=== PATIENT | male | born 1960 | race Caucasian/White ===

== ENCOUNTER 2020-02-06 14:46 | Emergency (ER) | payer SELFPAY ==
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
[2020-02-06 19:46] VITALS: TEMP 98.4
[2020-02-06 19:48] VITALS: BP 167/88; O2SAT 98
== END 2020-02-06 15:23 | disposition home or self-care (01) ==
LOC: ER 14:46
DX: S00.81XA Abrasion of other part of head, initial encounter (principal); S90.811A Abrasion, right foot, initial encounter; S80.811A Abrasion, right lower leg, initial encounter; V59.40XA Driver of pick-up truck or van injured in collision with unspecified motor vehicles in traffic accident, initial encounter; F17.210 Nicotine dependence, cigarettes, uncomplicated
CPT/HCPCS: 99284; G0390

== ENCOUNTER 2020-02-06 18:43 | Emergency (ER) | payer SELFPAY ==
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
[2020-02-06 20:35] LABS: Absolute Lymphocytes (CBC) 3.8 K/uL (0.7-4.9); Basophils % 1.3 % (0-1.3); Hematocrit 45.6 % (39.6-49.0); Lymphocytes % 32.2 % (15.3-44.8); MPV 8.1 fL (7.6-11.3)
[2020-02-06 21:11] LABS: Creatine Phosphokinase 95 U/L (39-308); Troponin (Emerg Dept Use Only) < 0.02 ng/mL (0.0-0.045)
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
[2020-02-06 22:23] VITALS: TEMP 98.1
[2020-02-06 22:25] VITALS: BP 151/78; O2SAT 97
== END 2020-02-06 21:51 | disposition home or self-care (01) ==
LOC: ER 18:43
DX: M54.12 Radiculopathy, cervical region (principal); V59.4 Driver of pick-up truck or van injured in collision with other and unspecified motor vehicles in traffic accident; F17.210 Nicotine dependence, cigarettes, uncomplicated
CPT/HCPCS: 36415; 70450; 71045; 72125; 82550; 84484; 85025; 93005; 99284

== ENCOUNTER 2023-12-18 15:04 | Emergency (ER) | payer SELFPAY ==
--- OUTSIDE RECORDS SUMMARY | 2023-12-18 15:07 | XMS REPORT | Continuity of Care Document ---
Author Name Unknown Address [address] [facility] [address] th[address] Address [address] [facility] [address] [place] [address] Care Team Providers Care Forklift Technician Name Role Phone Madalyn Attending Clinician Unavailable CYNDEE BULLARD M.D. Attending Clinician Clary Bergman Admitting Clinician Unavailable Payers Payer Name Policy Type Policy Number Effective Date Expirati on Date Source [facility] [id number] 2016 00:00:00 Problems Condition Name Condition Details Condition Category Status Onset Date Resolution Date Last Treatment Date Treating Clinician Comments Source Intertroch anteric fracture of right femur Intertroch anteric fracture of right femur Problem Active [facility] Subtrochan teric fracture, closed, right, initial encounter Subtrochan teric fracture, closed, right, initial encounter Problem Active [facility] Procedures Procedure Date / Time Performed Performing Clinicia n Source [U] XRAY FEMUR 2 VWS RIGHT [id number] 2019-06-02 00:00:00 [facility] [U] XRAY FEMUR 2 VWS RIGHT [id number] 2019-03-11 00:00:00 [facility] [U] XRAY FEMUR 2 VWS RIGHT [id number] 2019-01-28 00:00:00 [facility] Post Op Promis 29 Survey 2019-01-15 00:00:00 [facility] [U] XRAY FEMUR 2 VWS RIGHT [id number] 2018-12-30 00:00:00 [facility] Encounters Start Date/Time End Date/Time Encounter Type Admission Type Attending Clinicians Care Facility Care Department Encounter ID Source 2020-04-07 02:23:00 2020-04-07 02:23:00 Outpatient Madalyn [facility] [id number] [facility] 2019-06-04 10:45:00 2019-06-04 10:45:00 Appointmen t; CYNDEE BULLARD M.D. GAUVAIN, TAGGART, M.D. [facility] Orthopedics [facility] [id number] [facility] 2019-03-12 10:45:00 2019-03-12 10:45:00 Appointmen t; CYNDEE BULLARD M.D. GAUVAIN, TAGGART, M.D. [facility] [id number] [place] [facility] 2019-01-29 10:45:00 2019-01-29 10:45:00 Appointmen t; CYNDEE BULLARD M.D. GAUVAIN, TAGGART, M.D. [facility] [id number] [place] [facility] 2019-01-01 11:00:00 2019-01-01 11:00:00 Appointmen t; CYNDEE BULLARD M.D. GAUVAIN, TAGGART, M.D. [facility] Orthopedics [facility] [id number] [place] [facility] Results Test Description Test Time Test Comments Results Result Co mments Source [place] [facility][U] XRAY FEMUR 2 VWS RIGHT [id number] 10:55:00Images acquired, not reported on this accession number.[facility]
[2023-12-18] MEDS ORDERED: FAMOTIDINE 20 MG/2 ML VIAL IV ONE (15:27)
[2023-12-18] MEDS ORDERED: MORPHINE 4 MG/ML SYR ONE ×2 (15:27→17:56)
[2023-12-18] MEDS ORDERED: ONDANSETRON 4 MG/2 ML VIAL ONE (15:27)
[2023-12-18] MEDS ORDERED: NA CHLORIDE 0.9% 1,000 ML ONE (15:28)
[2023-12-18 15:51] LABS: Absolute Lymphocytes (CBC) 1.3 K/uL (0.7-4.9); Absolute Monocytes 0.8 K/uL (0.1-1.3); Absolute Neutrophil 9.1 K/uL (1.8-8.0); Basophils % 0.3 % (0-1.3); Eosinophils % 0.3 % (0-4.4); Hematocrit 45.1 % (39.6-49.0); Hemoglobin 14.9 g/dL (13.6-17.9); Lymphocytes % 11.6 % (15.3-44.8); MCH 29.1 pg (27.0-35.0); MCHC 33.1 g/dL (32.0-36.0); MCV 87.9 fL (80-100); MPV 7.9 fL (7.6-11.3); Monocytes % 7.5 % (3.3-12.3); Neutrophils % 80.3 % (41.7-73.7); Platelets 261 thou/uL (152-406); RBC Red Blood Cell Count 5.13 M/uL (4.33-5.43); Red Cell Distribution Width 13.8 % (12.1-15.2)
[2023-12-18 16:03] LABS: Albumin 3.9 g/dL (3.4-5.0); Albumin/Globulin Ratio 1.1 (1.1-1.8); Anion Gap 6.2 mEq/L (5.0-15.0); Bilirubin Total 0.5 mg/dL (0.2-1.0); Globulin 3.7 g/dL (2.3-3.5); Potassium 4.2 mEq/L (3.5-5.1); Protein, Total 7.6 g/dL (6.4-8.2); Troponin High Sensitivity 3.7 pg/mL (<58.9)
--- NOTE | 2023-12-18 17:07 | RAD REPORT ---
EXAM DESCRIPTION: US - Abdomen Exam Limited - 12/18/2023 3:49 pm CLINICAL HISTORY: ABD PAIN COMPARISON: No comparisons TECHNIQUE: Sonographic grayscale and color flow images of the right upper abdominal quadrant were o btained. FINDINGS: The gallbladder demonstrates an 8 mm shadowing gallstone near the neck. No pericholecystic fluid or gallbladder wall thickening. The common bile duct is normal measuring 4 mm. The liver demonstrates no findings of intrahepatic biliary dilatation. IMPRESSION: A single 8 mm gallstone is noted near the gallbladder neck. No other sonographic abnorma lities.
--- NOTE | 2023-12-18 17:34 | RAD REPORT ---
EXAM DESCRIPTION: RADChest Single View12/18/2023 4:00 pm CLINICAL HISTORY: CHEST PAIN COMPARISON: Chest Single View dated 02/06/2020 TECHNIQUE: Portable AP view of the chest. FINDINGS: Mild bibasilar interstitial prominence. No pneumothorax or effusion. The cardiomediastina l contours are unremarkable. IMPRESSION: Mild bibasilar interstitial prominence, may relate to under aeration, mild edema, or ear ly airspace disease.
[2023-12-18] MEDS ORDERED: KETOROLAC 30 MG/ML INJ ONE (17:55)
--- NOTE | 2023-12-18 18:51 | ER ---
Nurse's Notes [facility] Name: Benito Morrow Age: 63 yrs Sex: Male : 1960 Arrival Date: 12/18/2023 Time: 15:04 Bed 5 Private MD: Diagnosis: Other cholelithiasis without obstruction Presentation: 12/17 15:18 Chief complaint: Patient states: he started having chest pain approx 3 hours ago when ap3 leaving [facility]. patient currently rates his pain as a 10/10 on the pain scale. Coronavirus screen: At this time, the client does not indicate any symptoms associated with coronavirus-19. Ebola Screen: No symptoms or risks identified at this time. Initial Sepsis Screen: Does the patient meet any 2 criteria? No. Patient's initial sepsis screen is negative. Does the patient have a suspected source of infection? No. Patient's initial sepsis screen is negative. Risk Assessment: Do you want to hurt yourself or someone else? Patient reports no desire to harm self or others. Onset of symptoms was December 18, 2023 at 12:00. 15:18 Method Of Arrival: Ambulatory ap3 15:18 Acuity: LYNN 2 ap3 Triage Assessment: 15:28 General: Appears distressed, ill, Behavior is cooperative. Pain: Complains of pain in ap3 chest and right upper quadrant and epigastric area Pain currently is 10 out of 10 on a pain scale. Pain began 3 hours ago. Neuro: Level of Consciousness is awake, alert, obeys commands, Oriented to person, place, time, situation, Appropriate for age. Cardiovascular: Patient's skin is warm and dry. Respiratory: Airway is patent Respiratory effort is even, unlabored, Respiratory pattern is regular, symmetrical. GI: Reports nausea, vomiting. Historical: - Allergies: 15:19 No Known Allergies; ap3 - PMHx: 15:19 Hypertensive disorder; ap3 - Immunization history:: Adult Immunizations unknown. - Infectious Disease History:: Denies. - Social history:: Smoking status: Patient reports the use of cigarette tobacco products, smokes one pack cigarettes per day. Screenin:31 Abuse screen: Denies threats or abuse. Nutritional screening: No deficits noted. ap3 Tuberculosis screening: No symptoms or risk factors identified. 15:41 [facility] ED Fall Risk Assessment (Adult) History of falling in the last 3 months, ph including since admission No falls in past 3 months (0 pts) Confusion or Disorientation No (0 pts) Intoxicated or Sedated No (0 pts) Impaired Gait No (0 pts) Mobility Assist Device Used No (0 pt) Altered Elimination No (0 pt) Score/Fall Risk Level 0 - 2 = Low Risk Oriented to surroundings, Maintained a safe environment, Hourly rounding (assess needs \T\ fall precautionary measures) done. Assessment: 15:40 General: Appears in no apparent distress. uncomfortable, Behavior is calm, cooperative. ph Pain: Complains of pain in epigastric area Pain radiates to right upper quadrant. Neuro: Level of Consciousness is awake, alert, obeys commands, Oriented to person, place, time, situation. Cardiovascular: Capillary refill < 3 seconds in bilateral fingers Patient's skin is warm and dry. Respiratory: Airway is patent Respiratory effort is even, unlabored. GI: Reports upper abdominal pain, epigastric pain, nausea, vomiting. Derm: Skin is pink, warm \T\ dry. Musculoskeletal: Capillary refill < 3 seconds, in bilateral fingers. 17:01 Reassessment: Patient and/or family updated on plan of care and expected duration. Pain rs5 level reassessed. Patient is alert, oriented x 3, equal unlabored respirations, skin warm/dry/pink. Patient denies pain at this time. Patient states feeling better. 18:05 Reassessment: Patient and/or family updated on plan of care and expected duration. Pain rs5 level reassessed. Patient is alert, oriented x 3, equal unlabored respirations, skin warm/dry/pink. 19:31 Reassessment: Patient appears in no apparent distress at this time. Patient and/or jb4 family updated on plan of care and expected duration. Pain level reassessed. Patient is alert, oriented x 3, equal unlabored respirations, skin warm/dry/pink. Vital Signs: 15:18 BP 210 / 96; Pulse 60; Resp 21; Temp 98.7; Pulse Ox 100% ; Weight 104.33 kg; Height 5 ap3 ft. 9 in. ; Pain 10/10; 15:40 BP 181 / 85; Pulse 61; Resp 18; Pulse Ox 98% on R/A; ph 16:52 BP 178 / 96; Pulse 65; Resp 18; Pulse Ox 98% on R/A; ph 18:03 BP 182 / 94; Pulse 69; Resp 18; Pulse Ox 98% on R/A; ph 18:55 BP 164 / 88; Pulse 73; Resp 17; Pulse Ox 99% on R/A; rs5 15:18 Body Mass Index 33.96 (104.33 kg, 175.26 cm) ap3 15:18 Pain Scale: Adult ap3 ED Course: 15:08 Patient arrived in ED. ra3 15:18 Mariaa Omalley FNP-C is PHCP. kb 15:18 Kodak Turpin MD is Attending Physician. kb 15:19 Triage completed. ap3 15:19 EKG done, by ED staff, reviewed by Kodak Turpin MD. ap3 15:25 Alexandra He, RN is Primary Nurse. ph 15:31 Patient maintains SpO2 saturation greater than 95% on room air. ap3 15:31 Arm band placed on right wrist. ap3 15:32 Client placed on continuous cardiac and pulse oximetry monitoring. NIBP monitoring ap3 applied. cyber incident responder on. Pulse ox on. NIBP on. 15:35 CBC with Diff Sent. ph 15:35 Troponin HS Sent. ph 15:39 Initial lab(s) drawn, by ED staff, sent to lab. Inserted saline lock: 20 gauge in left ph antecubital area, using aseptic technique. Blood collected. Flushed with 10 mL NS. 15:40 Patient taken to ultrasound. via stretcher. ph 15:42 Patient has correct armband on for positive identification. Bed in low position. Call ph light in reach. 15:51 Abdomen Limited US In Process Unspecified. EDMS 16:02 XRAY Chest (1 view) In Process Unspecified. EDMS 16:34 sara pts brother.....[phone]. bd 18:04 No provider procedures requiring assistance completed. ph 19:21 Primary Nurse role handed off by Alexandra He, FERNY ty 19:30 Abelino Ordonez, RN is Primary Nurse. bm8 19:31 IV discontinued, intact, bleeding controlled, No redness/swelling at site. Pressure jb4 dressing applied. 19:31 Provided Education on: discharge instructions.. jb4 Administered Medications: 15:39 Drug: NS 0.9% IV 1000 ml IV at 1 bolus Per protocol; 1000 mL bolus Route: IV; Rate: 1 ph bolus; Site: left antecubital; 17:00 Follow up: Response: No adverse reaction; IV Status: Completed infusion; IV Intake: ph 1000ml 15:39 Drug: Ondansetron IVP 4 mg IVP once; over 2 minutes Route: IVP; Site: left antecubital; ph 18:04 Follow up: Response: No adverse reaction ph 15:39 Drug: morphine IVP or IV 4 mg IVP once over 4 mins Route: IVP; Infused Over: 4 mins; ph Site: left antecubital; 18:04 Follow up: Response: No adverse reaction; RASS: Drowsy (-1) ph 15:39 Drug: Famotidine IVP 20 mg IVP once; dilute with 10 mL 0.9% NaCl; give over 2 minutes ph Route: IVP; Site: left antecubital; 18:05 Follow up: Response: No adverse reaction ph 18:04 Drug: morphine IVP or IV 4 mg IVP once over 4 mins Route: IVP; Infused Over: 4 mins; ph Site: left antecubital; 18:05 Follow up: Response: No adverse reaction; Pain is decreased; RASS: Drowsy (-1) ph 18:04 Drug: Ketorolac IVP 15 mg IVP once Route: IVP; Site: left antecubital; ph 18:05 Follow up: Response: No adverse reaction ph Medication: 15:41 VIS not applicable for this client. ph Intake: 17:00 IV: 1000ml; Total: 1000ml. ph Outcome: 18:50 Discharge ordered by . kb 19:31 Discharged to home ambulatory, jb4 19:31 Condition: stable 19:31 Discharge instructions given to patient, Instructed on discharge instructions, follow up and referral plans. no drinking with medication, medication usage, Demonstrated understanding of instructions, follow-up care, medications, Prescriptions given X 3, 19:31 Patient left the ED. jb4 Signatures: Dispatcher [employer] EDMS Mariaa Omalley, JOSEPH HENDRIX-Diamond Ontiveros Patricia, RN RN Pa Hernandez RN RN jb4 Jacey Simpson RN RN ap3 Benjamin Wiggins RN RN rs5 Nicole Gallegos 3 Yandell, Isra ty Ordonez, Abelino, RN RN bm8
--- NOTE | 2023-12-18 18:51 | EDPHYS ---
Physician Documentation [facility] Name: Benito Morrow Age: 63 yrs Sex: Male : 1960 Arrival Date: 12/18/2023 Time: 15:04 Bed 5 Private MD: ED Physician Kodak Turpin HPI: 12/17 15:22 This 63 yrs old Male presents to ER via Ambulatory with complaints of Chest Pain, kb Vomiting. 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 States he has had this in the past and thought it was his gallbladder but didn't have it evaluated. Denies fever, diarrhea. Historical: - Allergies: 15:19 No Known Allergies; ap3 - PMHx: 15:19 Hypertensive disorder; ap3 - Immunization history:: Adult Immunizations unknown. - Infectious Disease History:: Denies. - Social history:: Smoking status: Patient reports the use of cigarette tobacco products, smokes one pack cigarettes per day. ROS: 15:22 Constitutional: As per HPI kb Exam: 15:19 Constitutional: This is a well developed, well nourished patient who is awake, alert, kb and in no acute distress. Head/Face: Normocephalic, atraumatic. ENT: Moist Mucous membranes Cardiovascular: Regular rate Respiratory: Respirations even and unlabored. No increased work of breathing. Talking in full sentences Skin: Warm, dry with normal turgor. Normal color. MS/ Extremity: Pulses equal, no cyanosis. Neurovascular intact. Full, normal range of motion. Neuro: Awake and alert, GCS 15, oriented to person, place, time, and situation. Moves all extremities. Normal gait. 15:19 ECG was reviewed by the Attending Physician. 15:19 Abdomen/GI: Inspection: abdomen appears normal, Bowel sounds: normal, Palpation: soft, in all quadrants, moderate abdominal tenderness, in the epigastric area and right upper quadrant, Vital Signs: 15:18 BP 210 / 96; Pulse 60; Resp 21; Temp 98.7; Pulse Ox 100% ; Weight 104.33 kg; Height 5 ap3 ft. 9 in. ; Pain 10/10; 15:40 BP 181 / 85; Pulse 61; Resp 18; Pulse Ox 98% on R/A; ph 16:52 BP 178 / 96; Pulse 65; Resp 18; Pulse Ox 98% on R/A; ph 18:03 BP 182 / 94; Pulse 69; Resp 18; Pulse Ox 98% on R/A; ph 18:55 BP 164 / 88; Pulse 73; Resp 17; Pulse Ox 99% on R/A; rs5 15:18 Body Mass Index 33.96 (104.33 kg, 175.26 cm) ap3 15:18 Pain Scale: Adult ap3 MDM: 15:18 Patient medically screened. kb 15:22 Data reviewed: vital signs, nurses notes. kb 18:49 Differential diagnosis: Cholelithiasis, myocardia ischemia or infarction, non-specific kb abd pain, pancreatitis. 18:49 Consideration of Admission/Observation Escalation of care including kb admission/observation considered. admission considered, but serial troponin normal, ekg normal, pain is to upper abd. No fluid, normal lfts. Counseling: I had a detailed discussion with the patient and/or guardian regarding the historical points, exam findings, and any diagnostic results supporting the discharge/admit diagnosis, lab results, radiology results, the need for outpatient follow up, a family practitioner, to return to the emergency department if symptoms worsen or persist or if there are any questions or concerns that arise at home. 12/17 15:18 Order name: CBC with Diff; Complete Time: 16:04 kb 12/17 15:18 Order name: Troponin HS; Complete Time: 16:04 kb 12/17 15:18 Order name: CMP; Complete Time: 16:04 kb 12/17 15:18 Order name: Lipase; Complete Time: 16:04 kb 12/17 17:56 Order name: Troponin High Sensitivity; Complete Time: 18:48 ph 12/17 15:18 Order name: XRAY Chest (1 view); Complete Time: 17:36 kb 12/17 15:18 Order name: Abdomen Limited US; Complete Time: 17:11 kb 12/17 15:18 Order name: EKG; Complete Time: 15:19 kb 12/17 15:18 Order name: Cardiac monitoring; Complete Time: 15:35 kb 12/17 15:18 Order name: EKG - Nurse/Tech; Complete Time: 15:25 kb 12/17 15:18 Order name: IV Saline Lock; Complete Time: 15:35 kb 12/17 15:18 Order name: Labs collected and sent; Complete Time: 15:35 kb 12/17 15:18 Order name: O2 Per Protocol; Complete Time: 15:35 kb 12/17 15:18 Order name: O2 Sat Monitoring; Complete Time: 15:35 kb EC:19 Rate is 60 beats/min. Rhythm is regular. QRS [place] is Normal. VA interval is normal at kb 148 msec. QRS interval is normal at 68 msec. QT interval is normal at 406 msec. Administered Medications: 15:39 Drug: NS 0.9% IV 1000 ml IV at 1 bolus Per protocol; 1000 mL bolus Route: IV; Rate: 1 ph bolus; Site: left antecubital; 17:00 Follow up: Response: No adverse reaction; IV Status: Completed infusion; IV Intake: ph 1000ml 15:39 Drug: Ondansetron IVP 4 mg IVP once; over 2 minutes Route: IVP; Site: left antecubital; ph 18:04 Follow up: Response: No adverse reaction ph 15:39 Drug: morphine IVP or IV 4 mg IVP once over 4 mins Route: IVP; Infused Over: 4 mins; ph Site: left antecubital; 18:04 Follow up: Response: No adverse reaction; RASS: Drowsy (-1) ph 15:39 Drug: Famotidine IVP 20 mg IVP once; dilute with 10 mL 0.9% NaCl; give over 2 minutes ph Route: IVP; Site: left antecubital; 18:05 Follow up: Response: No adverse reaction ph 18:04 Drug: morphine IVP or IV 4 mg IVP once over 4 mins Route: IVP; Infused Over: 4 mins; ph Site: left antecubital; 18:05 Follow up: Response: No adverse reaction; Pain is decreased; RASS: Drowsy (-1) ph 18:04 Drug: Ketorolac IVP 15 mg IVP once Route: IVP; Site: left antecubital; ph 18:05 Follow up: Response: No adverse reaction ph Disposition Summary: 12/18/23 18:50 Discharge Ordered Notes: Location: Home Condition: Stable kb Diagnosis - Other cholelithiasis without obstruction kb Followup: kb - With: Emergency Department - When: As needed - Reason: Worsening of condition Followup: kb - With: Private Physician - When: 2 - 3 days - Reason: Recheck today's complaints, Continuance of care, Re-evaluation by your physician Discharge Instructions: - Discharge Summary Sheet kb - Cholelithiasis, [id number] kb Forms: - Medication Reconciliation Form kb - Antibiotic Education kb - Prescription Opioid Use kb - Patient Portal Instructions kb - Leadership Thank You Letter kb Prescriptions: - Zofran 4 mg Oral tablet - take 1 tablet ORAL route every 6 hours As needed; 12 tablet; Refills: 0, kb Product Selection Permitted - Diclofenac Sodium 75 mg Oral tablet, delayed release (enteric coated) - take 1 tablet ORAL route 2 times per day As needed; 30 tablet; Refills: 0, kb Product Selection Permitted - dicyclomine 20 mg Oral tablet - take 1 tablet ORAL route 4 times per day As needed; 20 tablet; Refills: 0, kb Product Selection Permitted Addendum: 12/19/2023 21:30 Co-signature as Attending Physician, Kodak Turpin MD I agree with the assessment and c ibanez plan of care. Signatures: Dispatcher [employer] Mariaa Milan, CAPACITOR PACK PRESS OPERATOR-C CAPACITOR PACK PRESS OPERATOR-Kodak Carrizales MD MD cha Hall, Patricia, RN RN ph Jacey Simpson RN RN ap3 Corrections: (The following items were deleted from the chart) 12/17 15:19 15:19 Abdomen Limited+US.DAMIAN ordered. [facility] GONSALONM
[2023-12-18 22:57] VITALS: TEMP 98.7
[2023-12-18 23:10] VITALS: BP 164/88; O2SAT 99
--- NOTE | 2023-12-19 11:45 | EKG ---
Test Date: 2023-12-18 Test Time: 15:16:09 Site Technician: ALP MEASUREMENT RESULTS: Intervals: Rate: 60 WI: 148 QRSD: 68 QT: 406 QTc: 406 [place]: P: 45 WI: 148 QRS: 24 T: 53 INTERPRETIVE STATEMENTS: Normal sinus rhythm Normal ECG Compared to ECG 02/06/2020 20:17:36 No significant changes Electronically Signed On 12-19-23 11:42:45 CDT by Herbert Rivera
== END 2023-12-18 19:31 | disposition home or self-care (01) ==
LOC: ER 15:04
DX: K80.80 Other cholelithiasis without obstruction (principal)
CPT/HCPCS: 36415; 71045; 76705; 80053; 83690; 84484; 85025; 93005; 96361; 96374; 96375; 99285; J2405; J7030